=== PATIENT | male | born 1985 | race Caucasian/White ===

== ENCOUNTER 2017-08-02 08:43 | Day surgery (SDC) | payer OTHER ==
[~2017-08-02] VITALS: Ht 175.3 cm; Wt 89.8 kg
[2017-08-02 09:39] VITALS: BP 133/90
[2017-08-02] MEDS ORDERED: LACTATED RINGERS 1,000 ML IV SCH (09:51)
[2017-08-02] MEDS ORDERED: NO HOME MEDS (09:51)
[2017-08-02] MEDS ORDERED: LIDOCAINE-MPF 1%, 2ML ONE (09:58)
[2017-08-02] MEDS ORDERED: LIDOCAINE 1%, 2ML SQ PRN (10:00)
[2017-08-02] MEDS ORDERED: BUPIVACAINE/PF 0.5% ONE (10:21)
[2017-08-02] MEDS ORDERED: LIDOCAINE 1%, 50ML ONE (10:21)
[2017-08-02] MEDS ORDERED: DEXAMETHASONE 4 MG/ML, 1ML ONE (10:44)
[2017-08-02] MEDS ORDERED: ROCURONIUM 10 MG/ML,10ML ONE (10:44)
[2017-08-02] MEDS ORDERED: CEFAZOLIN 1,000 MG ONE (10:44)
[2017-08-02] MEDS ORDERED: NEOSTIGMINE 1 MG/ML, 10ML ONE (10:44)
[2017-08-02] MEDS ORDERED: SUCCINYLCHOLINE 20 MG/ML, 10ML ONE (10:44)
[2017-08-02] MEDS ORDERED: PROPOFOL 10 MG/ML, 20ML ONE (10:44)
[2017-08-02] MEDS ORDERED: ONDANSETRON 2MG/ML, 2ML ONE ×2 (10:44→13:24)
[2017-08-02] MEDS ORDERED: GLYCOPYRROLATE 0.2MG/1ML, 5ML ONE (10:44)
[2017-08-02] MEDS ORDERED: MIDAZOLAM 1 MG/ML, 2ML ONE ×2 (10:45→12:37)
[2017-08-02] MEDS ORDERED: LIDOCAINE-MPF 2% ,5ML ONE (10:45)
[2017-08-02] MEDS ORDERED: FENTANYL PF 250 MCG/5ML ONE (10:45)
[2017-08-02] MEDS ORDERED: PROMETHAZINE 25 MG/ML, 1ML IV PRN (12:00)
[2017-08-02] MEDS ORDERED: ALBUTEROL/IPRATROPIUM 2.5MG/0.5MG, 3 ML NPPB PRN (12:00)
[2017-08-02] MEDS ORDERED: ONDANSETRON 2MG/ML, 2ML IVPush PRN (12:00)
[2017-08-02] MEDS ORDERED: HYDROmorphone 1 MG/ML, 1ML IV PRN (12:00)
[2017-08-02] MEDS ORDERED: MIDAZOLAM 1 MG/ML, 2ML IV PRN (12:00)
[2017-08-02] MEDS ORDERED: KETOROLAC 30 MG/1 ML IM PRN (12:00)
[2017-08-02] MEDS ORDERED: MEPERIDINE/PF 50 MG/ML ONE (12:22)
[2017-08-02] MEDS: FENTANYL PF 100 MCG/2ML IV PRN ×3 (12:25→12:45)
[2017-08-02] MEDS: MEPERIDINE/PF 25MG/0.5ML IVPush PRN ×2 (12:25→12:30)
[2017-08-02] MEDS ORDERED: FENTANYL PF 100 MCG/2ML ONE ×2 (12:32→12:43)
== END 2017-08-02 15:40 | disposition home or self-care (01) ==
LOC: OUT 08:43
PROVIDERS: ATTEND Orthopaedic Surgery
DX: S86.012A Strain of left Achilles tendon, initial encounter (principal); X58.XXXA Exposure to other specified factors, initial encounter; Y93.89 Activity, other specified; Y92.89 Other specified places as the place of occurrence of the external cause; Y99.8 Other external cause status
CPT/HCPCS: 27650; J0330; J0690; J1100; J2175; J2250; J2405; J2704; J2710; J3010; J3490; J7120